=== PATIENT | male | born 1940 | race Caucasian/White ===

== ENCOUNTER → 2017-01-27 | Outpatient (CLI) | payer MEDICARE, BC ==
[~2017-01-27] MED LIST: AMBIEN; ANEXSIA 5/325 M1 TA1 PO; ASCORBIC ACID; ASPIRIN; ASPIRIN PO; ASPIRIN81 MG PO; ATIVAN; ATIVAN PO; ATIVAN2 M1 PO; ATIVAN2 MG PO; B COMPLEX1 TAB PO; CO Q-10 100 MG1 EACH PO; CO Q-1010 MG PO; COL-RITE50 MG PO; COQ-10100 MG PO; COUMADIN; COUMADIN PO; COUMADIN5 MG PO; COUMADIN7.5 MG PO; FAMOTIDINE PO; FENOFIBRATE160 MG PO; FISH OIL 1,0001 CA2 PO; FISH OIL 1,2001 CAP PO; FISH OIL PO; FLAGYL PO; FLOMAX0.4 M1; FLOMAX0.4 M1 PO; GLIPIZIDE PO; GLUCOSA-CHOND-1 EACH PO; GLUCOSAMINE & C1 CAP PO; GLUCOSAMINE PO; GLUCOSAMINE1000 MG PO; GLUCOTROL PO; GLUCOVANCE 1.251 TAB; GLUCOVANCE 1.251 TAB PO; GLYBURIDE-METFO1 TA2 PO; GLYBURIDE2.5 M1 PO; HYDROCODON-ACE1 EACH PO; IBUPROFEN; LEVAQUIN750 MG PO; LIPITOR40 MG PO; LISINOPRIL2.5 MG PO; LOPRESSOR PO; LORTAB 10-5001 EACH PO; LOVENOX SUBQ; MACROBID 100 M100 MG PO; MELATONIN10 M1 PO; METFORMIN; METFORMIN PO; METOPROLOL ER PO; METOPROLOL SUCC25 MG PO; METOPROLOL TAR25 MG PO; NEPHROCAPS CAPSU1 MG PO; NEXIUM PO; NICOTINE TRANSD21 MG EXT; NITROQUICK0.4 MG SL; OXYCODON-ACETA1 EAC1 PO; PANTOPRAZOLE SO40 MG PO; PROSCAR5 MG PO; PROSED DS PO; PROTONIX PO; ST JOSEPH ASPIR81 M1 PO; SYNTHROID25 MCG PO; TETRACYCLINE PO; TOPROL XL PO; TRICOR PO; VICODIN PO; VITAMIN B COMP1 EACH PO; VITAMIN B COMPLEX; VITAMIN D1000 UNI1 PO; ZESTRIL2.5 M1 PO; ZESTRIL5 MG PO; ZOCOR PO
--- NOTE | ~2017-01-27 | XA35 ---
[facility] A Service of [facility] & [facility] RADIOLOGY TEXT RESULTS PATIENT: TONY FU LOCATION: [facility] : 42 UNIT #: [id number] AGE: [address]: Danny Miller MD SEX: M ORDER DR: [id number] [facility] [address] [place], [place] [address] [id number] O MR#: [id number] Acc #: [id number] NAME: TONY FU : 1940 SEX: M STUDY DATE/TIME: 01/27/2017 13:01 UNIT: [facility] ROOM: STUDY DESCRIPTION: XA Arthrogram Shoulder Rt Attending Physician: Danny Miller M.D. Referring Physician: Guanaco Medrano M.D. Ordering Physician: Danny Miller M.D. Primary Care Physician: Guanaco Medrano M.D. MEDICAL IMAGING REPORT This report is preliminary unless electronic signature is present EXAM Right shoulder arthrogram HISTORY Chronic right shoulder pain. FINDINGS Procedure, attendant risks and options were discussed with Mr. Fu. He understands and wishes to proceed. The patient was placed in the supine position in the angio suite. The right shoulder was prepped with Chlorhexidine solution and subsequently draped. Utilizing maximal sterile barrier technique under local anesthesia a 22-gauge needle was inserted into the joint. Approximately 10 mL of contrast was injected. Multiple spot radiographs were obtained. These demonstrate a full-thickness tear of the supraspinous tendon. Needle was removed, hemostasis achieved. Patient was sent to the CT for CT arthrography. CONCLUSION Full-thickness tear of the supraspinous tendon. Please see the accompanying CT arthrogram report. Dictated by... Mehul Cha M.D. THIS IS AN ELECTRONICALLY VERIFIED REPORT Mehul Cha M.D. at 01/28/2017 5:11 PM Judith TD: 01/27/2017 21:02 JOB #: [id number] MEDICAL IMAGING REPORT Page 1 of 1 COPY
--- NOTE | ~2017-01-27 | CT128 ---
[facility] A Service of [facility] & [facility] RADIOLOGY TEXT RESULTS PATIENT: TONY FU LOCATION: [facility] : 41 UNIT #: [id number] AGE: [address]: Danny Miller MD SEX: M ORDER DR: [id number] [facility] [address] [place], [place] [address] [id number] O MR#: [id number] Acc #: [id number] NAME: TONY FU. : 1940 SEX: M STUDY DATE/TIME: 01/27/2017 13:42 UNIT: [facility] ROOM: STUDY DESCRIPTION: CT Upper Ext Rt W Cont Attending Physician: Danny Miller M.D. Referring Physician: Guanaco Medrano M.D. Ordering Physician: Danny Miller M.D. Primary Care Physician: Guanaco Medrano M.D. MEDICAL IMAGING REPORT This report is preliminary unless electronic signature is present EXAM CT arthrogram right shoulder 01/27/2017 HISTORY 76-year-old male with right shoulder pain for 3-4 months. No prior right shoulder surgery. Patient has a pacemaker and is not a candidate for MRI. COMPARISON Right shoulder x-rays 07/29/2016. Conventional right shoulder arthrogram 01/27/2017. TECHNIQUE Helical scan performed through the right shoulder following the intraarticular administration of contrast. No IV contrast was given for the exam. Coronal and sagittal reformatted images. This CT exam was performed with one or more of the following radiation dose reduction techniques: Automatic exposure control, adjustment of mA and/or kV according to patient size, and iterative reconstruction. FINDINGS There is intraarticular contrast in the glenohumeral joint which extends into the subacromial/subdeltoid bursa through a full-thickness, partially delaminating tear of the anterior/central insertional supraspinatus tendon. The tear measures slightly less than 1 cm in AP dimension. No significant tendon retraction. No evidence of significant supraspinatus muscle atrophy. The infraspinatus, teres minor, and subscapularis tendons appear intact. Long biceps tendon appears grossly intact. There is mild superior labral degeneration. Remainder of the glenoid labrum appears intact. Glenohumeral articular cartilage is intact. No loose intraarticular bodies. Mild degenerative change of the acromioclavicular joint. No significant STS. [facility] A Service of [facility] RADIOLOGY TEXT RESULTS PATIENT: [facility]ON[facility] FU [id number] 41 UNIT #: [id number] AGE: [address]: Danny Miller MD SEX: M ORDER DR: supraspinatus outlet impingement. No significant subacromial spur. Remainder of the visualized musculature appears within normal limits. Incidental scanning through the right lung field demonstrates dependent atelectasis. IMPRESSION 1. Full-thickness, partially delaminating tear involving the anterior/central insertional supraspinatus tendon. No significant tendon retraction or supraspinatus muscle atrophy. 2. Mild superior labral degeneration. 3. Mild acromioclavicular joint arthrosis. Dictated by... Raciel Stanford M.D. THIS IS AN ELECTRONICALLY VERIFIED REPORT Raciel Stanford M.D. at 01/29/2017 5:51 PM RODRIGO/shanae TD: 01/28/2017 15:30 JOB #: [id number] MEDICAL IMAGING REPORT Page 1 of 1 COPY
== END | disposition home or self-care (01) ==
LOC: CIVR 12:37
DX: M75.121 Complete rotator cuff tear or rupture of right shoulder, not specified as traumatic (principal); M94.8X1 Other specified disorders of cartilage, shoulder; M19.011 Primary osteoarthritis, right shoulder
CPT/HCPCS: 73040; 73201; Q9967